=== PATIENT | male | born 1955 | race Two or more races ===

== ENCOUNTER 2018-11-04 18:54 | Observation (INO) | payer OTHER ==
[~2018-11-04] VITALS: Ht 172.7 cm; Wt 84.2 kg
[2018-11-04 19:38] LABS: BASOPHILS # (AUTO) 0.09 x10^3/uL (0-0.1); BASOPHILS % (AUTO) 1 % (0-1); EOSINOPHILS # (AUTO) 0.23 x10^3/uL (0-0.4); EOSINOPHILS % (AUTO) 3 % (1-7); LYMPHOCYTES % (AUTO) 32 % (22-44); MD NO; MEAN CORPUSCULAR HEMOGLOBIN 31.4 pg (27.5-34.5); MEAN CORPUSCULAR HGB CONC 33.9 g/dL (33.2-36.2); MEAN CORPUSCULAR VOLUME 92.5 fL (81-97); MONOCYTES # (AUTO) 0.76 x10^3/uL (0.2-0.8); MONOCYTES % (AUTO) 10 % (2-9); NEUTROPHILS # (AUTO) 4.27 x10^3/uL (1.8-6.8); NEUTROPHILS % (AUTO) 54 % (42-75); PLATELET COUNT 206 x10^3/uL (130-400); RED BLOOD COUNT 5.25 x10^6/uL (4.38-5.82); RED CELL DISTRIBUTION WIDTH 13.2 % (9.4-14.8)
[2018-11-04 19:48] LABS: CHLORIDE 107 mmol/L (98-107)
[2018-11-04 19:58] LABS: ALANINE AMINOTRANSFERASE 29 U/L (12-78); ALBUMIN 4.5 g/dL (3.4-5.0); ALKALINE PHOSPHATASE 97 U/L (45-117); ANION GAP 7 mmol/L (5-15); BILIRUBIN,TOTAL 0.5 mg/dL (0.2-1.0); CALCIUM 9.7 mg/dL (8.5-10.1); CREATININE 0.98 mg/dL (0.7-1.3); TOTAL PROTEIN 8.8 g/dL (6.4-8.2); TROPONIN I < 0.015 ng/mL (0.000-0.045)
--- NOTE | 2018-11-04 20:31 | NUR ---
pt called to room from lobby
--- NOTE | 2018-11-04 20:45 | NUR ---
ASSUMED CARE OF PT AT THIS TIME FROM [facility]. 63 Y/O M PRESENTS STATED "WOKE UP THIS MORNING, GOT DIZZY GETTING UP, WENT AWAY, I DROVE MYSELF AND GOT LABS DRAWN, AND THEN LATER THIS AFTERNOON DIZZINESS CAME BACK, I FEELS LIKE I CAN'T KEEP MY BALANCE AND IT HAPPENS WITH I GET UP FROM SITTING." HX HTN. CONT PULSE OX, BP, CARDIAC MONITORS APPLIED, SR ON MONITOR. VSS. DENIES ANY PAIN, CP, DIZZINESS, VISUAL CHANGES. "SLIGHT HEADACHE MAYBE 1.510." A&OX4. NEURO AND CMS INTACT. CALL LIGHT IN REACH. FALL PRECUATIONS IN PLACE. SIDE RAILS UPX2. AWAITING EVAL FROM ERP.
--- NOTE | 2018-11-04 21:02 | NUR ---
DR. KAY AT BEDSIDE FOR EVALUATION, AWAITING ORDERS
[2018-11-04] MEDS ORDERED: ASPI-496 PO (21:06)
[2018-11-04] MEDS ORDERED: AMLO-150 PO (21:06)
[2018-11-04] MEDS ORDERED: ASPIRIN 325 MG TABLET PO ONE (21:30)
--- NOTE | 2018-11-04 21:40 | NUR ---
PT AMBULATORY TO RESTROOM WITH STEADY GAIT WITH ASSISTANCE, REPORTS DIZZINESS WITH AMBULATION. BACK TO BED RESTING COMFORTABLY, STATES DIZZINESS RESOLVED. DISCUSSED WITH DR. KAY, AWARE. NO NEW ORDERS RECEVIED. DISCUSSED ASA ORDER WITH DR. KAY, PT REPORTS TAKING 81MG ASPIRIN TODAY AT 11AM, PER DR. KAY TO ONLY ADMIN 162 MG OF ASPIRIN AT THIS TIME. VSS. SR ON MONITOR. CALL LIGHT IN REACH. FALL PRECUATIONS IN PLACE. A&XO4.
[2018-11-04] MEDS ORDERED: ASPIRIN 81 MG TABLET CHEW ONE (21:47)
--- NOTE | 2018-11-04 21:53 | NUR ---
DR. KAY AT BEDSIDE DISCUSSING POC WITH PT, PT TO BE ADMITTED TO HOSPITAL, VERBALIZED UNDERSTANDING, AGREES TO POC. IV TO BE PLACED PER MD FOR ADMISSION. VSS. ASA [address] KAY AT BEDSIDE[address] CALL LIGHT IN REACH. SR ON MONITOR.
[2018-11-04] MEDS ORDERED: NICOTINE 14MG/24 HR PATCH.TD24 TD SCH (22:00)
[2018-11-04] MEDS ORDERED: LIDODERM 5% PATCH TD PRN (22:00)
[2018-11-04] MEDS ORDERED: ONDANSETRON 4 MG TABLET PO PRN (22:00)
[2018-11-04] MEDS ORDERED: TEMAZEPAM 15 MG CAPSULE PO PRN (22:00)
[2018-11-04] MEDS ORDERED: ENOXAPARIN 40 MG/0.4 ML SQ SCH (22:00)
[2018-11-04] MEDS ORDERED: ENALAPRILAT 1.25 MG/ML, 2ML IV PRN (22:00)
[2018-11-04] MEDS ORDERED: DOCUSATE 100 MG CAPSULE PO PRN (22:00)
[2018-11-04] MEDS ORDERED: ACETAMINOPHEN 325 MG TABLET PO PRN (22:00)
--- NOTE | 2018-11-04 22:05 | NUR ---
ADMITTING PROVIDER AT BEDSIDE FOR EVALAUTION, AWAITING ROOM ON FLOOR. PT DENIES ANY DIZZINESS WHILE RESTING. CALL LIGHT IN REACH. VSS. SR ON MONITOR.
--- NOTE | 2018-11-04 22:32 | NUR ---
PHONE REPORT CALLED TO DANNY MUNOZ AT THIS TIME. ROOM RECEIVED ON FLOOR. AWAITING TRANSPORT.
--- NOTE | 2018-11-04 22:39 | NUR ---
Called [facility] about order. Lexiscan to be done tomorrow. OK'd by Dr. Price
--- NOTE | 2018-11-04 22:52 | NUR ---
ADMIT ORDER CHANGED BY ADMITTING PROVIDER, ROOM ASSIGNMENT CHANGED. AWAITING ROOM ON CARD TELE. PT UPDATED ON POC, VERBALIZED UNDERSTANDING. DANNY ON MED TELE CALLED AND NOTIFIED OF CHANGE IN POC.
[2018-11-04] MEDS ORDERED: MECLIZINE CHEWABLE 25 MG TAB PO PRN (23:00)
--- NOTE | 2018-11-04 23:06 | NUR ---
ROOM 511-1 RECEIVED, REPORT CALLED TO MCKENZIE MUNOZ AT THIS TIME. PT RESTING COMFORTABLY, DENIES ANY PAIN, NAUSEA, DIZZINESS AT THIS TIME. DENIES NEED TO USE RESTROOM. PT REQUESTING FOOD, TO DISCUSS WITH AND MCKENZIE MUNOZ NOTIFIED. CALL LIGHT IN REACH. VSS.
[2018-11-04 23:43] VITALS: BP 131/83
[2018-11-05] MEDS ORDERED: ATOR20TA86 PO (00:06)
[2018-11-05] MEDS ORDERED: TAMS0.4C2 PO (00:17)
[2018-11-05] MEDS ORDERED: CETI-158 PO (00:17)
[2018-11-05 02:03] LABS: TROPONIN I < 0.015 ng/mL (0.000-0.045)
[2018-11-05] MEDS ORDERED: ASPIRIN 81 MG TABLET EC PO SCH (06:00)
[2018-11-05 07:46] VITALS: BP 125/81
[2018-11-05 08:34] LABS: ALBUMIN 4.1 g/dL (3.4-5.0); ANION GAP 7 mmol/L (5-15); CALCIUM 9.7 mg/dL (8.5-10.1); CHLORIDE 108 mmol/L (98-107); CREATININE 1.04 mg/dL (0.7-1.3)
[2018-11-05 08:38] LABS: TROPONIN I < 0.015 ng/mL (0.000-0.045)
[2018-11-05 08:45] LABS: CHOL/HDL RATIO 4.1
[2018-11-05] MEDS ORDERED: ASPIRIN 81 MG TABLET CHEW PO/NG SCH (09:00)
[2018-11-05] MEDS ORDERED: AMLODIPINE 5 MG TABLET PO SCH (09:00)
[2018-11-05] MEDS ORDERED: REGADENOSON 0.4 MG/5 ML SYRINGE ONE (09:47)
[2018-11-05] MEDS ORDERED: ASPIRIN 81 MG TABLET EC PO ONE (11:30)
[2018-11-05 13:18] VITALS: BP 136/74
[2018-11-06] MEDS ORDERED: ASPIRIN 81 MG TABLET CHEW PO SCH (06:00)
== END 2018-11-05 18:25 | disposition home or self-care (01) ==
LOC: ED 22:00 → EDIP 22:01 → INTOOBSV 22:01 → 5SO 23:43
PROVIDERS: ADMIT Internal Medicine; ATTEND Internal Medicine
DX: R07.89 Other chest pain (principal); I10 Essential (primary) hypertension; E78.5 Hyperlipidemia, unspecified; F17.200 Nicotine dependence, unspecified, uncomplicated; I08.2 Rheumatic disorders of both aortic and tricuspid valves; R42 Dizziness and giddiness
CPT/HCPCS: 36415; 70450; 70544; 70551; 71045; 78452; 80048; 80053; 80061; 82040; 82962; 84484; 85025; 85379; 92523; 93005; 93017; 93306; 93880; 96372; 97161; 97165; 99284; A9502; C9898; G0378; G8978; G8979; G8980; J1650; J2785; 99285

== ENCOUNTER → 2020-06-09 | Outpatient (CLI) | payer OTHER ==
[~2020-06-09] MED LIST: AMLO-150 PO; ASPI-496 PO; ATOR20TA86 PO; CETI-158 PO; TAMS0.4C2 PO
== END | disposition home or self-care (01) ==
LOC: CFH 14:51
PROVIDERS: ATTEND Family Medicine
DX: I08.8 Other rheumatic multiple valve diseases (principal); I10 Essential (primary) hypertension; E78.5 Hyperlipidemia, unspecified
CPT/HCPCS: 93306